=== PATIENT | male | born 1990 ===

== ENCOUNTER → 2025-04-14 | Outpatient (CLI) | payer OTHER ==
[2025-04-14 21:35] LABS: Creatinine, Urine Random 325.0 mg/dL (27.00-270.00); Microalb/Creat Ratio UR, Rand 8.462 mg/g (0.000-30.000); Microalbumin, Random Urine 27.5 mg/L (0.000-20.000)
== END | disposition home or self-care (01) ==
LOC: LAB 15:39 → LAB SHORT 15:39
PROVIDERS: Nurse Practitioner Family
DX: E11.9 Type 2 diabetes mellitus without complications (principal)
CPT/HCPCS: 82043; 82570